=== PATIENT | female | born 1970 | race Caucasian/White ===

== ENCOUNTER → 2016-08-10 | Outpatient (CLI) | payer OTHER ==
[~2016-08-10] MED LIST: MULTTAB58 PO; PRT/20 PO
--- NOTE | 2016-08-16 17:00 | MAMMOGRAPHY REPORT ---
BILATERAL DIGITAL SCREENING MAMMOGRAM TOMOSYNTHESIS WITH CAD: 08/10/2016 CLINICAL HISTORY: Routine screening. Patient has no complaints. TECHNIQUE: Breast tomosynthesis in addition to standard 2D mammography was performed. Current study was also evaluated with a Computer Aided Detection (CAD) system. COMPARISON: Prior outside mammograms dated 05/10/2013, 06/10/2010, 03/18/2009 from [facility]. BREAST COMPOSITION: The tissue of both breasts is heterogeneously dense, which may obscure small ma sses. FINDINGS: There is a newly visualized lobulated circumscribed 11 mm mass seen within the right cent ral breast, for which ultrasound is recommended for further evaluation. This may represent a cyst. The remainder of both breasts are stable compared to prior exams, without suspicious masses, calcifi cations, or areas of architectural distortion noted. Asymmetries in bilateral superior breasts are stable compared to prior exams. IMPRESSION: INCOMPLETE: NEED PRIOR STUDIES FOR COMPARISON Right central breast mass, for which additional imaging evaluation with ultrasound is recommended. The patient will be called to schedule an appointment. Note that the impression should state INCOMPLETE-NEED ADDITIONAL IMAGING EVALUATION. Approximately 10% of breast cancers are not detected with mammography. A negative mammographic repor t should not delay biopsy if a clinically suggestive mass is present. Vanessa Church M.D. ah/:08/17/2016 16:06:40 Test Engineering Intern: Edgar HARVEY(Gilbert)(M), [facility] letter sent: Addl Imaging 0 BI-RADS Code: 0 Need prior studies for comparison
== END | disposition home or self-care (01) ==
LOC: C.MAMM 12:21
PROVIDERS: ATTEND Family Medicine
DX: Z12.31 Encounter for screening mammogram for malignant neoplasm of breast (principal); N63 Unspecified lump in breast

== ENCOUNTER → 2016-08-28 | Outpatient (CLI) | payer OTHER ==
--- NOTE | 2016-08-28 15:00 | MAMMOGRAPHY REPORT ---
ULTRASOUND OF RIGHT BREAST: 08/28/2016 CLINICAL HISTORY: 46-year-old woman called back from screening mammography for a lobulated 11 mm mas s in the central right breast. Family history of breast cancer = mother. COMPARISON: Mammograms dated 08/10/2016, 05/10/2013, 06/10/2010, 03/18/2009. FINDINGS: Real-time high-resolution sonographic evaluation was performed in the 12:00, retroareolar and 6:00 axes of the right breast. In the 12:00 axis periareolar region, there is an oval parallel circumscribed anechoic cyst with posterior acoustic enhancement, measuring 8.4 x 4.4 x 10.7 mm. Th is correlates well with the lobulated 11 mm mammographic mass and is benign. Incidental note is mad e of other anechoic cysts in the 12:00 right breast, 1 cm from the nipple, measuring 6.1 x 2.3 x 10. 6 mm in conglomerate. No suspicious solid mass is identified. There is mild benign duct ectasia in the retroareolar right breast. IMPRESSION: ACR BI-RADS CATEGORY 2: BENIGN The 11 mm lobulated and circumscribed mass in the central right breast correlates with a benign anec hoic simple cyst on ultrasound. Incidental note is made of other cysts in the 12:00 right breast. These findings represent benign fibrocystic changes. Recommend routine mammography in one year. These results and recommendations were discussed with the patient at the time of the exam. Michelle Rock M.D. ay/:08/28/2016 11:53:34 Brand Ambassador Promotional Model: Dr. Michelle Rock, [facility] letter sent: Normal 1/2 BI-RADS Code: ACR BI-RADS Category 2: Benign
== END | disposition home or self-care (01) ==
LOC: C.MAMM 11:07
PROVIDERS: ATTEND Family Medicine
DX: N63 Unspecified lump in breast (principal)

== ENCOUNTER → 2017-04-03 | Outpatient (CLI) | payer OTHER | END | disposition home or self-care (01) | LOC: C.LABSPEC 16:38 | PROVIDERS: ATTEND Physician Assistant | DX: N89.8 Other specified noninflammatory disorders of vagina (principal) ==

== ENCOUNTER → 2017-04-05 | Outpatient (CLI) | payer OTHER ==
[2017-04-05 18:10] LABS: URINE APPEARANCE CLEAR (CLEAR); URINE BILIRUBIN NEG (NEG); URINE COLOR YELLOW; URINE NITRITE NEG (NEG); URINE PH 6.5 (4.5-7.5); URINE SPECIFIC GRAVITY 1.009 (1.000-1.030); UROBILINOGEN NEG (NEG)
[2017-04-05 18:11] LABS: MANUAL MICROSCOPIC REQUIRED? NO; REVIEW REQ? YES
[2017-04-05 18:36] LABS: URINE EPITHELIAL CELL AUTO >30 /lpf (0-5)
== END | disposition home or self-care (01) ==
LOC: C.LABSPEC 17:32
PROVIDERS: ATTEND Obstetrics & Gynecology
DX: R31.0 Gross hematuria (principal)

== ENCOUNTER → 2017-07-25 | Outpatient (CLI) | payer OTHER | END | disposition home or self-care (01) | LOC: C.PAPS 09:27 | PROVIDERS: ATTEND Obstetrics & Gynecology | DX: Z01.419 Encounter for gynecological examination (general) (routine) without abnormal findings (principal) ==

== ENCOUNTER → 2017-08-24 | Outpatient (CLI) | payer OTHER ==
--- NOTE | 2017-08-24 12:23 | DIAGNOSTIC IMAGING REPORT ---
ABDOMINAL ULTRASOUND COMPLETE HISTORY: Generalized abdominal pain.. COMPARISON: Abdominal ultrasound 08/20/2013. FINDINGS: Pancreas: The pancreas demonstrates a normal echotexture. Liver: There are few scattered small hyperechoic foci within the liver with the largest measuring 1 cm. These are similar to the prior studies and favor small hemangiomas. Gallbladder: No gallbladder wall thickening. No gallstones. CBD: 5 mm. Kidneys: No hydronephrosis. Normal right kidney measuring 12.0 cm. Atrophic and scarred left kidney measures 7.5 cm. This remains unchanged. Spleen: Normal in size. Aorta: Normal in caliber. IVC: Patent. IMPRESSION: 1. No significant change compared to the prior studies. 2. A few small hepatic hemangiomas are again noted. 3. Normal gallbladder. No gallstones. 4. Atrophic/scarred left kidney is again noted. Electronically signed by: Jared Molina M.D. 08/24/2017 12:21 PM Dictated Date/Time: 08/24/2017 12:18 PM
== END | disposition home or self-care (01) ==
LOC: C.ULTR 10:49
PROVIDERS: ATTEND Family Medicine
DX: R10.11 Right upper quadrant pain (principal); D18.03 Hemangioma of intra-abdominal structures; N26.1 Atrophy of kidney (terminal)

== ENCOUNTER → 2017-09-04 | Outpatient (CLI) | payer OTHER ==
[~2017-09-04] MED LIST changes: +SINCALIDE INJ 1.5 MCG in SODIUM CHLORIDE 0.9% 100ML 100 ML IV SCH
--- NOTE | 2017-09-04 13:48 | DIAGNOSTIC IMAGING REPORT ---
HEPATOBILIARY EF IMAGING CLINICAL HISTORY: 47 years-old Female presenting with ABDOMINAL PAIN. TECHNIQUE: Dynamic imaging of the gallbladder was initiated 65 minutes after administration of 5 mCi of technetium 99m Choletec. Imaging was obtained every 5 minutes over a span of 40 minutes. 1.5 mcg of sincalide was injected 5 minutes prior to the start of imaging. The gallbladder ejection fraction was calculated. COMPARISON: Ultrasound from 08/24/2017. FINDINGS: The hepatobiliary scan shows normal filling of the gallbladder at the start of imaging. Expected activity within the bowel also noted. Gallbladder ejection fraction measured at 46% (normal greater than 50%, abnormal less than 35%). IMPRESSION: 1. Slightly diminished gallbladder ejection fraction. This is not convincing for chronic cholecystitis. Electronically signed by: Anthony Batista M.D. 09/04/2017 1:47 PM Dictated Date/Time: 09/04/2017 1:43 PM
== END | disposition home or self-care (01) ==
LOC: C.NUCL 10:21
PROVIDERS: ATTEND Family Medicine
DX: R10.84 Generalized abdominal pain (principal)

== ENCOUNTER → 2017-09-24 | Outpatient (CLI) | payer OTHER ==
[~2017-09-24] MED LIST changes: -SINCALIDE INJ 1.5 MCG in SODIUM CHLORIDE 0.9% 100ML 100 ML IV SCH
--- NOTE | 2017-09-24 10:38 | DIAGNOSTIC IMAGING REPORT ---
TWO VIEW CHEST CLINICAL HISTORY: Atypical chest pain. FINDINGS: PA and lateral chest radiographs are compared to study dated 02/28/2012. The cardiomediastinal silhouette is unremarkable. The lungs and pleural spaces are clear. There is no pneumothorax. The bony thorax appears intact. IMPRESSION: No active disease in the chest. Electronically signed by: Kimo Alfonso M.D. 09/24/2017 10:37 AM Dictated Date/Time: 09/24/2017 10:36 AM
--- NOTE | 2017-09-24 12:50 | DIAGNOSTIC IMAGING REPORT ---
SACRUM COCCYX MIN 2 VIEWS CLINICAL HISTORY: Fracture of coccyx, sequela. Tailbone pain. COMPARISON STUDY: CT of the abdomen and pelvis May 10, 2010. FINDINGS: Sacroiliac joints are intact. No acute fracture within the sacrum or the coccyx. Subtle cortical irregularity of the second coccygeal segment is similar to CT of May 10, 2010. This could reflect a healed fracture. IMPRESSION: 1. No acute fracture of the sacrum or coccyx. 2. Cortical irregularity of the second coccygeal segment which is similar to CT of May 10, 2010. This could reflect a healed fracture. Electronically signed by: Kevin Blackburn M.D. 09/24/2017 12:49 PM Dictated Date/Time: 09/24/2017 12:46 PM
== END | disposition home or self-care (01) ==
LOC: C.RAD 09:41
PROVIDERS: ATTEND Family Medicine
DX: R07.9 Chest pain, unspecified (principal)

== ENCOUNTER → 2017-10-03 | Outpatient (CLI) | payer OTHER ==
--- NOTE | 2017-10-03 15:56 | MAMMOGRAPHY REPORT ---
BILATERAL DIGITAL SCREENING MAMMOGRAM TOMOSYNTHESIS WITH CAD: 10/03/2017 CLINICAL HISTORY: Routine screening. Patient has no complaints. TECHNIQUE: Breast tomosynthesis in addition to standard 2D mammography was performed. Current study was also evaluated with a Computer Aided Detection (CAD) system. COMPARISON: Comparison is made to exams dated: 08/28/2016 ultrasound, 08/10/2016 mammogram - [facility], 05/10/2013 mammogram, 06/10/2010 mammogram, and 03/18/2009 mammogram - [facility]. BREAST COMPOSITION: The tissue of both breasts is heterogeneously dense, which may obscure small mas ses. FINDINGS: No suspicious masses, calcifications, or areas of architectural distortion are noted in ei ther breast. There has been no significant interval change compared to prior exams. IMPRESSION: ACR BI-RADS CATEGORY 1: NEGATIVE There is no mammographic evidence of malignancy. A 1 year screening mammogram is recommended. The pa tient will receive written notification of the results. Approximately 10% of breast cancers are not detected with mammography. A negative mammographic report should not delay biopsy if a clinically suggestive mass is present. Vanessa Church M.D. /:10/03/2017 15:03:09 Blanket Folder: Rhea HARVEY(Gilbert)(M), [facility] letter sent: Normal 1/2 BI-RADS Code: ACR BI-RADS Category 1: Negative
== END | disposition home or self-care (01) ==
LOC: C.MAMM 14:21
PROVIDERS: ATTEND Family Medicine
DX: Z12.31 Encounter for screening mammogram for malignant neoplasm of breast (principal)

== ENCOUNTER → 2017-11-05 | Day surgery (SDC) | payer OTHER ==
[2017-10-25 09:48] VITALS: Ht 180.3 cm; Wt 75.0 kg
[~2017-11-05] VITALS: Ht 180.3 cm; Wt 75.0 kg
[~2017-11-05] MED LIST changes: +ATROPINE SULFATE 0.1 MG/ML 5ML SYR IV PRN; +EpHEDrine SULFATE INJ 50 MG/ML AMP IV PRN; +LIDOCAINE HCL 2% 2 ML VIAL (20MG/ML) ONE; +MIDAZOLAM HCL 1 MG/ML 2ML VIAL ONE; -MULTTAB58 PO; +ONDANSETRON INJ 2 MG/ML 2 ML VIAL ONE; +PROPOFOL IV EMULSION 10 MG/ML 20 ML VIAL IV ONE; -PRT/20 PO
--- NOTE | 2017-11-05 10:14 | Endo History and Physical ---
History & Physical Date of Service: Nov 05, 2017. Chief Complaint: RUQ Abdominal pain Referring Physician: Khushboo Leal History of Present Illness 47 yo CF who presents for EGD secondary to RUQ abdominal pain. Past Surgical History Hx Cardiac Surgery: No Hx Internal Defibrillator: No Hx Pacemaker: No Hx Abdominal Surgery: Yes (LAPAROSCOPIES) Hx of Implantable Prosthesis: No Hx Post-Op Nausea and Vomiting: No Hx Cancer Surgery: No Hx Thoracic Surgery: No Hx Orthopedic: No Hx Urinary Tract Surgery: No Family History Polyp Social History Smoking Status: Never Smoker Hx Substance Use: No Hx Alcohol Use: No Allergies Coded Allergies: No Known Allergies (Unverified , 10/25/17) Current Medications Reported Home Medications Medications Dose Route/Sig Max Daily Dose Days Date Category No Active Prescriptions or Reported Medications Rx Vital Signs Weight (Kilograms): 75 Height (Feet): 5 Height (Inches): 11 Physical Exam General Appearance: WD/WN, no apparent distress Respiratory/Chest: Auscultation: breath sounds normal Cardiovascular: Heart Auscultation: RRR Abdomen: Bowel Sounds: normal Inspection & Palpation: soft, non-distended, no tenderness, guarding & rebound Assessment and Plan Assessment: 47 yo CF who presents for EGD secondary to RUQ abdominal pain. Plan: Proceed with colonoscopy.
--- NOTE | 2017-11-05 11:42 | Anesthesiology Progress Note ---
Anesthesia Post Op Note Date & Time Nov 05, 2017 at 11:42 Vital Signs Vital Signs Past 12 Hours Date Time Temp Pulse Resp B/P (MAP) Pulse Ox O2 Delivery O2 Flow Rate FiO2 11/05/17 10:14 36.7 83 20 143/75 (97) 99 Room Air Notes Mental Status: alert / awake / arousable, participated in evaluation Pt Amnestic to Procedure: Yes Nausea / Vomiting: adequately controlled Pain: adequately controlled Airway Patency, RR, SpO2: stable & adequate BP & HR: stable & adequate Hydration State: stable & adequate Anesthetic Complications: no major complications apparent
--- NOTE | 2017-11-05 11:43 | Discharge Instructions ---
Endoscopy Patient Instructions Date / Procedure(s) Performed Nov 05, 2017. EGD Allergy Information Coded Allergies: No Known Allergies (Unverified , 10/25/17) Discharge Date / Findings Nov 05, 2017. Duodenal biopsies Gastritis s/p biopsies Reflux esophagitis s/p biopsies Medication Instructions 1) Start Protonix 40mg by mouth each morning 1/2 hour prior to breakfast. 2) OK to resume all medications today as prescribed Reported Home Medications Medications Dose Route/Sig Max Daily Dose Days Date Category No Active Prescriptions or Reported Medications Rx Provider Instructions Activity Restrictions - No exercising or heavy lifting for 24 hours. - Do not drink alcohol the day of the procedure. - Do not drive a car or operate machinery until the day after the procedure. - Do not make any important decisions or sign important papers in 24 hours after the procedure. Following Day: - Return to full activity which may include returning to work/school. Diet Start your diet with liquids and light foods (jello, soup, juice, toast). Then eat your usual diet if not nauseated. Treatment For Common After Affects For mild abdominal pain, bloating, or excessive gas: - Rest - Eat lightly - Lie on right side Follow-Up Information Follow-up with Dr Khushboo Leal as scheduled Anesthesia Information What You Should Know You have had a procedure that required some medicine to reduce anxiety and discomfort. This treatment is called moderate sedation. After receiving the treatment, you may be sleepy, but you will be able to breathe on your own. The effects of the treatment may last for several hours. Follow these instructions along with Activity/Diet recommendations noted above: * Do NOT do anything where dizziness or clumsiness would be dangerous. * Rest quietly at home today, then you can be up and about tomorrow. * Have a responsible person stay with you the rest of today. * You may have had an I.V. today. If so, you may take the dressing off later today. Recommendations Call your doctor if: * Trouble breathing * Continuous vomiting for more than 24 hours * Temperature above 101 degrees * Severe abdominal pain or bloating * Pain not relieved by pain medicine ordered * There is increased drainage or redness from any incision * A large amount of rectal bleeding greater than 2-3 tablespoons. (If you had a polyp/s removed or have hemorrhoids, a small amount of blood - from the rectum is to be expected.) * You have any unanswered questions or concerns. IN THE EVENT OF A SERIOUS EMERGENCY, GO TO THE NEAREST EMERGENCY ROOM Your discharge instructions were prepared by provider Ian Mcdonough. Patient Instructions Signature Page Ricarda Hines Patient (or Guardian) Signature/Date: I have read and understand the instructions given to me by my caregivers. Caregiver/RN/Doctor Signature/Date: The above-named patient and/or guardian has received patient instructions on this date. + Original Patient Signature Page (only) stays with chart. Please make copy for patient.
--- NOTE | 2017-11-05 11:52 | GI REPORT ---
Procedure Date: 11/05/2017 11:16 AM Procedure: Upper GI endoscopy Indications: Abdominal pain in the right upper quadrant Medicines: Monitored Anesthesia Care Complications: No immediate complications. Estimated Blood Loss: Estimated blood loss: none. Procedure: Pre-Anesthesia Assessment: - Prior to the procedure, a History and Physical was performed, and patient medications and allergies were reviewed. The patient's tolerance of previous anesthesia was also reviewed. The risks and benefits of the procedure and the sedation options and risks were discussed with the patient. All questions were answered, and informed consent was obtained. Prior Anticoagulants: The patient has taken no previous anticoagulant or antiplatelet agents. ASA Grade Assessment: II - A patient with mild systemic disease. After reviewing the risks and benefits, the patient was deemed in satisfactory condition to undergo the procedure. After obtaining informed consent, the endoscope was passed under direct vision. Throughout the procedure, the patient's blood pressure, pulse, and oxygen saturations were monitored continuously. The scope was introduced through the mouth, and advanced to the second part of duodenum. The upper GI endoscopy was accomplished without difficulty. The patient tolerated the procedure well. Findings: LA Grade A (one or more mucosal breaks less than 5 mm, not extending between tops of 2 mucosal folds) esophagitis with no bleeding was found. Biopsies were taken with a cold forceps for histology. Localized mild inflammation was found in the gastric antrum. Biopsies were taken with a cold forceps for histology. The examined duodenum was normal. Biopsies for histology were taken with a cold forceps for evaluation of celiac disease. Impression: - LA Grade A reflux esophagitis. Biopsied. - Gastritis. Biopsied. - Normal examined duodenum. Biopsied. Recommendation: - Resume previous diet. - Use Protonix (pantoprazole) 40 mg PO daily. - Await pathology results. - Return to GI office as previously scheduled. Ian Mcdonough DO 11/05/2017 11:52:31 AM This report has been signed electronically. Note Initiated On: 11/05/2017 11:16 AM I attest to the content of the Intraoperative Record and orders documented therein, exceptions below
[2017-11-05 12:14] VITALS: BP 115/72; PULSE 69; TEMP 36.7; O2SAT 98
== END | disposition home or self-care (01) ==
LOC: C.GI 09:53
PROVIDERS: ATTEND Internal Medicine
DX: R10.31 Right lower quadrant pain (principal); K21.0 Gastro-esophageal reflux disease with esophagitis; K29.50 Unspecified chronic gastritis without bleeding; Z86.718 Personal history of other venous thrombosis and embolism

== ENCOUNTER 2023-01-22 08:48 | Observation (INO) ==
[2023-01-22] MEDS ORDERED: SODIUM CHLORIDE 0.9% 1000ML 500 ML IV ONE (09:01)
--- NOTE | 2023-01-22 09:03 | Emergency Department Note ---
Impression & Plan Stroke ADMIT ED Provider Note HPI: The patient is a 52-year-old female who presents emergency department with a chief complaint of headache and left lower extremity weakness. Patient states she woke up at approximately 6 AM with a mild headache and noticed that her left lower extremity was weak when she was trying to get out of bed. Patient describes this as a "heaviness" in her left lower extremity. She states her headache is moderate in nature. She states at times she did get some transient visual changes and does have a history of migraine with similar aura. On arrival here to the ED the patient is hemodynamically stable, she is alert and oriented x3, on exam is noted to have some very mild drift of the left lower extremity with testing against gravity but otherwise has no focal deficits. ROS: - Per HPI Differential Diagnosis: Migraine complex, tension headache, acute ischemic stroke, subarachnoid hemorrhage, hemorrhagic stroke, amongst other potential pathologies. *Outpatient medications and allergy history reviewed. *Pertinent external medical records reviewed. PE: General: Alert HEENT: Normocephalic, trachea midline Eyes: Extraocular eye movement is intact, no scleral erythema Pulmonary: Clear to auscultation bilaterally, no wheezing Cardio: Regular rate and rhythm GI: Abdomen is soft to palpation : No suprapubic tenderness MSK: No evidence of trauma or malformation of the extremities, no edema Skin: No evidence of rash Neuro: Alert, symmetrical facial movements are appreciated, mild drift of the left lower extremity with testing against gravity, there is no drift of the upper extremities with testing against gravity, no ataxia on [id number] testing bilaterally Psychiatric: Cooperative night monitor: (As interpreted by myself): - An order was placed for continuous cardiac monitoring - Patient was noted to be in sinus rhythm with a rate of 70 EKG: (As interpreted by myself): Rate: 62 Rhythm: Normal sinus rhythm Intervals: Within normal limits ST changes: No ST elevation Time: 0900 Interventions provided in ED: -Aspirin, Plavix, IV fluid bolus NIH STROKE SCALE: 1A: Level of consciousness Alert; keenly responsive 0 1B: Ask month and age Both questions right 0 1C: 'Blink eyes' & 'squeeze hands' Performs both tasks 0 2: Horizontal extraocular movements Normal 0 3: Visual salgado No visual loss 0 4: Facial palsy Normal symmetry 0 5A: Left arm motor drift No drift for 10 seconds 0 5B: Right arm motor drift No drift for 10 seconds 0 6A: Left leg motor drift Slight drift of the left lower extremity with testing against gravity +1 6B: Right leg motor drift No drift for 5 seconds 0 7: Limb Ataxia No ataxia 0 8: Sensation Normal; no sensory loss 0 9: Language/aphasia Normal; no aphasia 0 10: Dysarthria Normal 0 11: Extinction/inattention No abnormality 0 TOTAL NIH SCORE =1 Medical Decision Making: Patient presented to the emergency department with headache and some left lower extremity weakness. Symptoms began this morning when she woke up and are mild in nature therefore not considered a candidate for aggressive therapy such as thrombolytics. Here to the ED the patient does exhibit some drift of the left lower extremity with testing against gravity that is also mild in nature, otherwise she does not have any focal deficits. IV was established labwork obtained, patient was placed on pvc monitor, CT imaging of the head without contrast as well as CT imaging urography of the head and neck were ordered. CT imaging does not show any evidence of any acute abnormality, no evidence of any large vessel occlusion or stroke. Lab work shows mild leukopenia at 3.8, otherwise no critical findings are noted on CBC or CMP. On my reassessment patient symptoms are improved and NIH score on repeat is 0. She states she does have a history of some similar symptoms with migraine headaches in the past although given her focal complaint of weakness I did feel that MRI imaging of the brain would be reasonable to rule out ischemic stroke. MRI imaging was obtained and does show evidence of possible acute stroke in the area of the right hua radiata. I discussed this with the on-call stroke neurology at [facility], Dr. Vazquez, who is in agreement that at this time the patient to be admitted here at [facility] for further management and secondary work-up. Patient was loaded with aspirin and Plavix as well as given IV fluids. Patient is in agreement to this plan. Case was discussed with the on-call midlevel provider for [facility] hospitalist service and the patient was placed for admission in stable condition. Consultants: -Hospitalist service, Dr. Martinez -Neurology, Dr. Vazquez Disposition discussion held by myself with: Patient Diagnosis: 1. Acute ischemic stroke 2. Left lower extremity weakness, acute 3. Headache, acute 4. Leukopenia, acute, mild Disposition: Admission Axel Diamond DO Emergency Medicine Past Med/Surg History Medical History Anxiety state, unspecified (04/16/13) Eczema Gastritis determined by endoscopy Hyperlipidemia Hypothyroid Leukopenia Vitamin D deficiency Surgical History H/O colonoscopy (05/2019) +TBA, repeat 5 yrs History of dilatation and curettage multiple History of esophagogastroduodenoscopy (EGD) (05/2019) gastritis History of laparoscopy x4 History of left breast biopsy benign History of umbilical hernia repair with laparoscopy History of wisdom tooth extraction Family History (Updated 07/27/22 @ 09:26 by Angeline Ch DO) Grandfather (Maternal) Family history of reaction to anesthesia difficulty waking up Aunt Diabetes Grandmother (Paternal) Diabetes Leukemia Father Hypertension Dyslipidemia Mother , age 63 from [place] Breast cancer Myocardial infarction, Onset Age: 63 Grandmother (Maternal) Heart disease Leukemia Daughter Multiple sclerosis Social History Smoking Status: Never smoker Second Hand Exposure: No; Do You Dip or Chew Tobacco: No; Hx Alcohol Use: Yes Alcohol type: beer Alcohol Intake Frequency: Monthly or Less Hx Substance Use: No Preferred Language: Yi Communication Ability: Effective Visual Impairment: No Limitations Hearing Ability: Normal Carbonation Equipment Operator Required: No Beliefs That Will Affect Care: None marital status: Current Living Situation: Family Current Living Situation Comment: Lives with and son current occupational status: employed 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 How many Children do You have: 2 Feels Safe at Home: Yes Childhood Exposure to Second-Hand Smoke: No Diet: regular Diet Comment: Regular caffeine: Yes during the past year weight has: remained stable Dental Care, Regularly: Yes Physical Activity Frequency: 5-6 Times per Week Seatbelt Use: always Sunscreen Use: Yes Assistive Devices: Contacts and Glasses Allergies Allergies Allergy/AdvReac Type Severity Reaction Status Date / Time No Known Allergies Allergy Verified 01/22/23 13:08 Home Meds Home Medications Medication Instructions Recorded Confirmed multivitamin 1 tab PO QAM 11/15/18 01/22/23 Previous Rx's Medication Instructions Recorded Cock-Up Wrist Splint #1 ea 07/26/21 levothyroxine 50 mcg tablet 50 mcg PO DAILY #90 tabs 12/04/22 Results & Data (ED) Vital Signs Vital Signs - 24 hr 01/22/23 09:10 01/22/23 09:25 01/22/23 09:17 Temperature 36.4 C L Temperature Source Oral Pulse Rate 66 62 Pulse Rate [Apical] Pulse Rhythm Regular Pulse Strength Normal Respiratory Rate 16 Respiratory Effort / Characteristics Non-Labored Spontaneous Respiratory Depth Normal Blood Pressure 151/72 H Blood Pressure [Left Arm] Blood Pressure Mean 98 Blood Pressure Mean [Left Arm] Pulse Oximetry 98 98 Oxygen Delivery Method Room Air Room Air Sepsis Recent Fever Within 48 Hours No Sepsis New/Unexplained Change in Mental Status No Sepsis Action Taken by Nursing No Action Required 01/22/23 13:01 01/22/23 13:37 Temperature Temperature Source Pulse Rate 72 Pulse Rate [Apical] 68 Pulse Rhythm Pulse Strength Respiratory Rate 16 Respiratory Effort / Characteristics Respiratory Depth Blood Pressure Blood Pressure [Left Arm] 148/73 H Blood Pressure Mean Blood Pressure Mean [Left Arm] 98 Pulse Oximetry 99 Oxygen Delivery Method Sepsis Recent Fever Within 48 Hours Sepsis New/Unexplained Change in Mental Status Sepsis Action Taken by Nursing Laboratory Data 01/22/23 09:01 01/22/23 09:01 Lab Results 01/22/23 01/22/23 01/22/23 Range/Units 09:01 09:01 09:01 WBC 3.88 L (4.8-10.8) K/ul RBC 4.70 (4.20-5.40) M/uL Hgb 14.3 (12.0-16.0) g/dl Hct 42.0 (37.0-47.0) % MCV 89.4 (80.0-100.0) fL MCH 30.4 (25.0-34.0) pg MCHC 34.0 (32.0-36.0) g/dL RDW Std Deviation 43.9 (36.4-46.3) fL RDW Coeff of Merly 13.4 (11.5-14.5) % Plt Count 279 (130-400) K/uL MPV 9.3 L (9.4-12.4) fL Immature Gran % (Auto) 0.3 % Neut % (Auto) 60.6 % Lymph % (Auto) 30.9 % [place] % (Auto) 7.7 % Eos % (Auto) 0.0 % Baso % (Auto) 0.5 % Neut # (Auto) 2.35 (1.40-6.50) K/uL Lymph # (Auto) 1.20 (1.2-3.4) K/uL [place] # (Auto) 0.30 (0.11-0.59) K/uL Eos # (Auto) 0.00 (0-0.50) K/uL Baso # (Auto) 0.02 (0-0.2) K/uL Immature Gran # (Auto) 0.01 (0.01-0.20) K/uL PT 11.0 (9.0-12.0) Seconds INR 1.0 (0.9-1.1) APTT 26.8 (21.0-31.0) Seconds PTT Ratio 1.0 Sodium 138 (136-145) mmol/L Potassium 3.9 (3.5-5.1) mmol/L Chloride 104 (98-107) mmol/L Carbon Dioxide 29 (21-32) mmol/L Anion Gap 5 (3-11) BUN 12 (6-23) mg/dl Creatinine 0.90 (0.6-1.2) mg/dl Est Cr Clr Drug Dosing 79.9 ml/min Est GFR ( Amer) 84.0 ml/min Est GFR (Non-Af Amer) 72.5 ml/min BUN/Creatinine Ratio 13.3 (10-20) Glucose 109 H (70-99(Fasting)) mg/dl Calcium 9.9 (8.6-10.3) mg/dl Magnesium 1.9 (1.7-2.4) mg/dl Total Bilirubin 0.5 (0.2-1.0) mg/dl AST 18 (13-39) U/L ALT 12 (7-52) U/L Alkaline Phosphatase 69 (34-104) U/L Troponin I High Sens 4.0 (0-14) pg/ml Total Protein 7.7 (6.0-8.3) gm/dl Albumin 4.5 (3.4-5.0) gm/dl Globulin 3.2 (2.5-4.0) gm/dl Albumin/Globulin Ratio 1.4 (0.9-2) SARS-CoV-2, RNA, NAAT (NEGATIVE) 06/19/23 Range/Units 13:01 WBC (4.8-10.8) K/ul RBC (4.20-5.40) M/uL Hgb (12.0-16.0) g/dl Hct (37.0-47.0) % MCV (80.0-100.0) fL MCH (25.0-34.0) pg MCHC (32.0-36.0) g/dL RDW Std Deviation (36.4-46.3) fL RDW Coeff of Merly (11.5-14.5) % Plt Count (130-400) K/uL MPV (9.4-12.4) fL Immature Gran % (Auto) % Neut % (Auto) % Lymph % (Auto) % [place] % (Auto) % Eos % (Auto) % Baso % (Auto) % Neut # (Auto) (1.40-6.50) K/uL Lymph # (Auto) (1.2-3.4) K/uL [place] # (Auto) (0.11-0.59) K/uL Eos # (Auto) (0-0.50) K/uL Baso # (Auto) (0-0.2) K/uL Immature Gran # (Auto) (0.01-0.20) K/uL PT (9.0-12.0) Seconds INR (0.9-1.1) APTT (21.0-31.0) Seconds PTT Ratio Sodium (136-145) mmol/L Potassium (3.5-5.1) mmol/L Chloride (98-107) mmol/L Carbon Dioxide (21-32) mmol/L Anion Gap (3-11) BUN (6-23) mg/dl Creatinine (0.6-1.2) mg/dl Est Cr Clr Drug Dosing ml/min Est GFR ( Amer) ml/min Est GFR (Non-Af Amer) ml/min BUN/Creatinine Ratio (10-20) Glucose (70-99(Fasting)) mg/dl Calcium (8.6-10.3) mg/dl Magnesium (1.7-2.4) mg/dl Total Bilirubin (0.2-1.0) mg/dl AST (13-39) U/L ALT (7-52) U/L Alkaline Phosphatase (34-104) U/L Troponin I High Sens (0-14) pg/ml Total Protein (6.0-8.3) gm/dl Albumin (3.4-5.0) gm/dl Globulin (2.5-4.0) gm/dl Albumin/Globulin Ratio (0.9-2) SARS-CoV-2, RNA, NAAT NEGATIVE (NEGATIVE) Administered Medications Discontinued Medications Aspirin (Aspirin Chew 324 Mg) 324 mg PO NOW STA Stop: 01/22/23 12:53 Last Admin: 01/22/23 12:57 Dose: 324 mg Documented By: SERGE Clopidogrel Bisulfate (Clopidogrel Bisulfate 300 Mg Tab) 300 mg PO NOW STA Stop: 01/22/23 13:10 Last Admin: 01/22/23 13:19 Dose: 300 mg Documented By: SERGE Sodium Chloride (Nss 1000ml) 500 mls @ 999 mls/hr IV .Q31M ONE Stop: 01/22/23 09:31 Last Infusion: 01/22/23 10:18 Dose: 0 mls/hr Documented By: Admin: 01/22/23 09:30 Dose: 999 mls/hr Documented By: MIRACLE Ioversol (Optiray 320 125ml) 119 ml IV ONCE ONE Stop: 01/22/23 10:33 Last Admin: 01/22/23 10:32 Dose: 119 ml Documented By: KOFI Imaging Data Radiologist's Impression: Head CT 01/22/23 09:01 CT OF THE HEAD WITHOUT CONTRAST CLINICAL HISTORY: neuro deficit, acute stroke suspected. Dizziness. Left-sided weakness. COMPARISON STUDY: No previous studies for comparison. TECHNIQUE: Helical axial images of the head were obtained without IV contrast. Automated exposure control was utilized for the study. A dose lowering technique was utilized adhering to the principles of ALARA. FINDINGS: No acute intracranial hemorrhage, midline shift or mass effect is present. The ventricular system is unremarkable. The basal cisterns are patent. No extra-axial collections are present. There are no findings to suggest acute dural sinus thrombosis or acute territorial infarct. There is mild ethmoid sinus mucosal thickening. IMPRESSION: No acute intracranial findings. ACT 112: Negative or not required by law. Electronically signed by: Kevin Blackburn M.D. 01/22/2023 10:41 AM Head CTA 01/22/23 09:01 CT ANGIOGRAM OF THE BRAIN CLINICAL HISTORY: Neurologic deficit. Stroke like symptoms. Dizziness. COMPARISON STUDY: Unenhanced CT of the brain performed concurrently on 01/22/2023. TECHNIQUE: Following the IV administration of 119 cc of Optiray 320, CT angiogram of the brain was performed from the skull base to the vertex. Images are reviewed in the axial, sagittal, and coronal planes. 3-D MIPS images are created and assessed. IV contrast was administered without complication. A dose lowering technique was utilized adhering to the principles of ALARA. FINDINGS: Brain parenchyma: The brain parenchyma is normal in appearance. There is no evidence of hemorrhage, mass effect, or acute territorial ischemia noting angiographic phase technique. There is no evidence of enhancing mass lesion on the angiogram phase images. No extra-axial fluid collection is seen. Wisdom-white matter differentiation is preserved. Ventricles, sulci, and cisterns: Normal in configuration. CT angiogram of the brain: The internal carotid arteries are widely patent, as are the anterior and middle cerebral arteries. The vertebrobasilar system and posterior cerebral arteries are widely patent. The left vertebral artery is dominant. There is no aneurysm, high-grade stenosis, or focal vessel cutoff identified throughout the intracranial circulation. Dural sinuses: Clear as visualized. Orbits: The bony orbits are intact. The orbital contents are normal as visualized. Sinuses and mastoids: The visualized paranasal sinuses are clear. The mastoid air cells are well pneumatized. Calvarium: Unremarkable. IMPRESSION: 1. There is no evidence of hemorrhage, mass effect, or acute territorial ischemia noting angiographic phase technique. 2. Unremarkable CT angiogram of the brain. ACT 112: Negative or not required by law. Electronically signed by: Kimo Alfonso M.D. 01/22/2023 10:45 AM Neck CTA 01/22/23 09:01 CT angio neck with con CLINICAL HISTORY: 52 years-old Female with neuro deficit, acute stroke suspected. Acute stroke like symptoms COMPARISON STUDY: CTA head of same day TECHNIQUE: Following the IV administration of 119 mL of Optiray, CT angiogram of the neck was performed from the aortic arch to the skull base. Images are reviewed in the axial, sagittal, and coronal planes. 3-D MIPS images are created and assessed. IV contrast was administered without complication. All measurements were calculated based on NASCET criteria. A dose lowering technique was utilized adhering to the principles of ALARA. CT DOSE: 997.82 mGy.cm FINDINGS: No significant atherosclerosis. No aneurysm, dissection, high-grade stenosis or arterial occlusion. Dominant left vertebral artery. Lung apices are clear. No pneumothorax. Unremarkable soft tissues. No acute fracture. IMPRESSION:Unremarkable CTA of the neck. ACT 112: Negative or not required by law. The above report was generated using voice recognition software. It may contain grammatical, syntax or spelling errors. Electronically signed by: Kamron Phillips M.D. 01/22/2023 11:01 AM Brain MRI 01/22/23 11:01 MRI OF THE BRAIN WITHOUT IV CONTRAST CLINICAL HISTORY: Left lower extremity weakness. Dizziness. COMPARISON STUDY: CT of the brain dated 01/22/2023. TECHNIQUE: MRI of the brain was performed utilizing various T1 and T2-weighted sequences in the axial, sagittal, and coronal planes. IV contrast was not administered for this examination. FINDINGS: Brain parenchyma: There is a 1 cm focus of restricted diffusion suggested in the right hua radiata seen on axial image #13. There is no clear corresponding drop in signal on the ADC maps. A small acute to subacute lacunar infarct is not excluded. No additional foci of restricted diffusion are identified. There is no hemorrhage or mass effect. There are tiny chronic lacunar infarcts within both cerebellar hemispheres. Wisdom-white matter differentiation is preserved. No extra-axial fluid collection is seen. The cerebellar tonsils are normal in configuration. Ventricles, sulci, and cisterns: Normal in configuration. Pituitary and sella: Unremarkable. Intracranial vasculature: Normal flow voids are maintained at the skull base. Orbits: The bony orbits are grossly intact. Orbital contents are normal in appearance. Sinuses and mastoids: There is mild mucosal thickening within the right ethmoid sinuses. The remaining paranasal sinuses and anastomosis are clear. Calvarium: Unremarkable. Cervical cord: Partially visualized cervical spinal cord is normal in morphology and signal intensity. IMPRESSION: 1. Question a tiny acute to subacute lacunar infarct in the right hua radiata. See above. 2. No additional findings are suspicious for acute ischemia. 3. There is no hemorrhage or mass effect. ACT 112: Negative or not required by law. Electronically signed by: Kimo Alfonso M.D. 01/22/2023 12:46 PM Discharge Plan Visit Data Chief Complaint: Neuro Symptoms/Deficit Stated Complaint: HEADACHE, BLURRED VISION, L LEG & ARM HEAVINESS ED Provider: Axel Diamond Discharge Problem: Stroke Forms Stand Alone Forms: My [facility] [place] [employer] Prescriptions Prescriptions: No Action levothyroxine 50 mcg tablet 50 mcg PO DAILY Qty: 90 1RF (DME) Cock-Up Wrist Splint Misc See Rx Instructions .Route Qty: 1 0RF Rx Instructions: As directed multivitamin Tablet 1 tab PO QAM Referrals Referrals: Angeline Ch DO [Primary Care Provider] - Stroke Qualifiers: CVA mechanism: unspecified Qualified Code(s): I63.9 - Cerebral infarction, unspecified
[2023-01-22 09:48] LABS: Basophils # (auto) 0.02 K/uL (0-0.2); Basophils % (auto) 0.5 %; Hemoglobin 14.3 g/dl (12.0-16.0); Immature Granulocytes # (auto) 0.01 K/uL (0.01-0.20); Immature Granulocytes % (auto) 0.3 %; Lymphocytes % (auto) 30.9 %; Mean Corpuscular Hemoglobin 30.4 pg (25.0-34.0); Mean Corpuscular Volume 89.4 fL (80.0-100.0); Mean Platelet Volume 9.3 fL (9.4-12.4); Monocytes % (auto) 7.7 %; Neutrophils # (auto) 2.35 K/uL (1.40-6.50); Neutrophils % (auto) 60.6 %; Platelet Count 279 K/uL (130-400); RDW Coefficient of Variation 13.4 % (11.5-14.5); RDW Standard Deviation 43.9 fL (36.4-46.3); White Blood Count 3.88 K/ul (4.8-10.8)
[2023-01-22 10:04] LABS: Albumin Globulin Ratio 1.4 (0.9-2); Albumin Level 4.5 gm/dl (3.4-5.0); BUN Creatinine Ratio 13.3 (10-20); Bilirubin,Total 0.5 mg/dl (0.2-1.0); Calcium 9.9 mg/dl (8.6-10.3); Creatinine Clr Calc Pharmacy 79.9 ml/min; Est GFR (Non-African American) 72.5 ml/min; Globulin 3.2 gm/dl (2.5-4.0); Magnesium 1.9 mg/dl (1.7-2.4); Potassium 3.9 mmol/L (3.5-5.1); Total Protein 7.7 gm/dl (6.0-8.3)
[2023-01-22 10:20] LABS: Partial Thromboplastin Time 26.8 Seconds (21.0-31.0)
[2023-01-22] MEDS ORDERED: OPTIRAY 320 125ml IV ONE (10:32)
--- NOTE | 2023-01-22 10:42 | CT Scan Report ---
CT OF THE HEAD WITHOUT CONTRAST CLINICAL HISTORY: neuro deficit, acute stroke suspected. Dizziness. Left-sided weakness. COMPARISON STUDY: No previous studies for comparison. TECHNIQUE: Helical axial images of the head were obtained without IV contrast. Automated exposure con trol was utilized for the study. A dose lowering technique was utilized adhering to the principles o f ALARA. FINDINGS: No acute intracranial hemorrhage, midline shift or mass effect is present. The ventricular system is unremarkable. The basal cisterns are patent. No extra-axial collections are present. There are no findings to suggest acute dural sinus thrombosis or acute territorial infarct. There is mild e thmoid sinus mucosal thickening. IMPRESSION: No acute intracranial findings. ACT 112: Negative or not required by law. Electronically signed by: Kevin Blackburn M.D. 01/22/2023 10:41 AM
--- NOTE | 2023-01-22 10:47 | CT Scan Report ---
CT ANGIOGRAM OF THE BRAIN CLINICAL HISTORY: Neurologic deficit. Stroke like symptoms. Dizziness. COMPARISON STUDY: Unenhanced CT of the brain performed concurrently on 01/22/2023. TECHNIQUE: Following the IV administration of 119 cc of Optiray 320, CT angiogram of the brain was pe rformed from the skull base to the vertex. Images are reviewed in the axial, sagittal, and coronal pl anes. 3-D MIPS images are created and assessed. IV contrast was administered without complication. A dose lowering technique was utilized adhering to the principles of ALARA. FINDINGS: Brain parenchyma: The brain parenchyma is normal in appearance. There is no evidence of hemorrhage, m ass effect, or acute territorial ischemia noting angiographic phase technique. There is no evidence o f enhancing mass lesion on the angiogram phase images. No extra-axial fluid collection is seen. Wisdom- white matter differentiation is preserved. Ventricles, sulci, and cisterns: Normal in configuration. CT angiogram of the brain: The internal carotid arteries are widely patent, as are the anterior and m iddle cerebral arteries. The vertebrobasilar system and posterior cerebral arteries are widely patent . The left vertebral artery is dominant. There is no aneurysm, high-grade stenosis, or focal vessel c utoff identified throughout the intracranial circulation. Dural sinuses: Clear as visualized. Orbits: The bony orbits are intact. The orbital contents are normal as visualized. Sinuses and mastoids: The visualized paranasal sinuses are clear. The mastoid air cells are well pneu matized. Calvarium: Unremarkable. IMPRESSION: 1. There is no evidence of hemorrhage, mass effect, or acute territorial ischemia noting angiographic phase technique. 2. Unremarkable CT angiogram of the brain. ACT 112: Negative or not required by law. Electronically signed by: Kimo Alfonso M.D. 01/22/2023 10:45 AM
--- NOTE | 2023-01-22 11:02 | CT Scan Report ---
CT angio neck with con CLINICAL HISTORY: 52 years-old Female with neuro deficit, acute stroke suspected. Acute stroke lik e symptoms COMPARISON STUDY: CTA head of same day TECHNIQUE: Following the IV administration of 119 mL of Optiray, CT angiogram of the neck was perform ed from the aortic arch to the skull base. Images are reviewed in the axial, sagittal, and coronal pl anes. 3-D MIPS images are created and assessed. IV contrast was administered without complication. Al l measurements were calculated based on NASCET criteria. A dose lowering technique was utilized adhe ring to the principles of ALARA. CT DOSE: 997.82 mGy.cm FINDINGS: No significant atherosclerosis. No aneurysm, dissection, high-grade stenosis or arterial occlusion. D ominant left vertebral artery. Lung apices are clear. No pneumothorax. Unremarkable soft tissues. No acute fracture. IMPRESSION:Unremarkable CTA of the neck. ACT 112: Negative or not required by law. The above report was generated using voice recognition software. It may contain grammatical, syntax o r spelling errors. Electronically signed by: Kamron Phillips M.D. 01/22/2023 11:01 AM
--- NOTE | 2023-01-22 12:47 | Magnetic Resonance Report ---
MRI OF THE BRAIN WITHOUT IV CONTRAST CLINICAL HISTORY: Left lower extremity weakness. Dizziness. COMPARISON STUDY: CT of the brain dated 01/22/2023. TECHNIQUE: MRI of the brain was performed utilizing various T1 and T2-weighted sequences in the axial , sagittal, and coronal planes. IV contrast was not administered for this examination. FINDINGS: Brain parenchyma: There is a 1 cm focus of restricted diffusion suggested in the right hua radiata seen on axial image #13. There is no clear corresponding drop in signal on the ADC maps. A small acu te to subacute lacunar infarct is not excluded. No additional foci of restricted diffusion are identi fied. There is no hemorrhage or mass effect. There are tiny chronic lacunar infarcts within both cere bellar hemispheres. Wisdom-white matter differentiation is preserved. No extra-axial fluid collection i s seen. The cerebellar tonsils are normal in configuration. Ventricles, sulci, and cisterns: Normal in configuration. Pituitary and sella: Unremarkable. Intracranial vasculature: Normal flow voids are maintained at the skull base. Orbits: The bony orbits are grossly intact. Orbital contents are normal in appearance. Sinuses and mastoids: There is mild mucosal thickening within the right ethmoid sinuses. The remainin g paranasal sinuses and anastomosis are clear. Calvarium: Unremarkable. Cervical cord: Partially visualized cervical spinal cord is normal in morphology and signal intensity . IMPRESSION: 1. Question a tiny acute to subacute lacunar infarct in the right hua radiata. See above. 2. No additional findings are suspicious for acute ischemia. 3. There is no hemorrhage or mass effect. ACT 112: Negative or not required by law. Electronically signed by: Kimo Alfonso M.D. 01/22/2023 12:46 PM
[2023-01-22] MEDS ORDERED: ASPIRIN CHEW 324 MG PO STA (12:52)
[2023-01-22] MEDS ORDERED: CLOPIDOGREL BISULFATE 300 MG TAB PO STA (13:09)
--- NOTE | 2023-01-22 13:24 | History & Physical Report ---
Date of Service January 22, 2023 Assessment & Plan (1) Stroke: Plan: Presented with headache/L arm heaviness/L leg weakness. COVID negative. BP on arrival 151/72 CT head negative, CTA head/neck without acute abnormality MRI brain obtained which showed ?tiny acute to subacute lacunar infarct in the right hua radiata No TPN per discussion w/ 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 (consider holter at dc if no afib on monitor given symptoms of dizziness coming/going) -Check TSH given hypothyroidism, typically on 50mcg daily Given ASA/Plavix in ER, continue ASA 81mg/Plavix for tomorrow x21 days, then rec ASA 81mg daily NIHSS NSS x1L to maintain BPs (slightly dehydrated on exam, but not on labs) -- will need outpt f/u for meds likely to be initiated but will allow permissive HTN at present Complete ECHO Lipid panel in AM -- dosing pending repeat levels (prior elevated cholesterol to 250, not on treatment) A1c in AM -- family hx DM, however glu on admission 109 to note Dysphagia screening, then advance diet as tolerated (not having any issues w/ swallowing at present moment) PT/OT/Speech consult Neuro consult in AM Labs in AM (2) Leukopenia: Plan: noted, differential unimpressive all prior levels low in system -- does appear had lymph node biopsy in the past. was sent for flow analysis but unimpressive will check peripheral smear, monitor CBC w/ diff on repeat (3) Hyperlipidemia: Plan: hx of such, not on treatment Lipid panel in AM, plan to start statin therapy (4) Hypothyroid: Plan: Prior TSH wnl in 08.14 Instructed on proper use, repeat TSH pending w/ labs Continue Synthroid 50mcg in the meantime (5) GERD (gastroesophageal reflux disease): Plan: prior hx reflux, not reporting any issues at present used to be on protonix/pepcid, not at present (prior EGD/c-scope in 2018 w/ polyp removed w/ colonoscopy, EGD showed gastritis, small hiatal hernia) monitor for any issues History of Present Illness Chief Complaint: headache, LLE weakness Primary Care Provider: Angeline Ch, 52yo female with PMHx significant for migraine w/ aura, hypothyroidism, GERD, 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 NIHSS 1 for LLE drift against resistance in ER. Discussed w/ [facility] [facility] Neurologist Dr Vazquez by ER provider Dr Mayo, no TPN. Rec to load w/ ASA/Plavix and complete secondary work-up with ECHO/Lipid/A1c. Patient evaluated in room A11B, daughter and at bedside. Symptoms currently resolved at present reported, possibly slight LLE weakness w/ dorsiflexion on exam but otherwise negative. Currently without symptoms, sipping on water and having applesauce. She notes she did not have any chest pain/shortness of breath, but did have some dizziness reported. No palpitations/history of afib. On Synthroid, used to take before eating but has been taking w/ her AM coffee/breakfast. Prior too low level TSH and adjustments made but hasn't had recent check since last July. Discussed admission for completing stroke work-up, neuro consult w/ Dr Hyatt for AM (daughter follows for history of MS). No recent chills/fevers, illness, no chest pain, shortness of breath, abdominal pain. 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 No pronator drift or weakness of upper extremities bilaterally. Prior cholesterol level July 2022 250, LDL 164, HDL 68. Not on treatment -- she notes her levels were "good" per her report. No smoker, occasional etoh use. Does not take baby ASA at home. Just given ASA/Plavix prior to eval. Full code. Questions/concerns addressed at this time. ER Course: CT head, CTA head/neck, MRI brain noting questionable tiny acute to subacute lacunar infarct in right hua radiata. CBC with WBC 3.88, no shift. CMP unremarkable, glu 109. Mag 1.9. Trop 4.5. EKG w/ NSR but noting RBBB (no prior for comparison in system). Allergies Allergy/AdvReac Type Severity Reaction Status Date / Time No Known Allergies Allergy Verified 01/22/23 13:08 Home Medications Medication Instructions Recorded Confirmed Type multivitamin 1 tab PO QAM 11/15/18 01/22/23 History Cock-Up Wrist Splint #1 ea 07/26/21 07/27/22 Rx levothyroxine 50 mcg tablet 50 mcg PO DAILY #90 tabs 12/04/22 01/22/23 Rx Past Med/Surg History Medical History Anxiety state, unspecified (04/16/13) Eczema Gastritis determined by endoscopy Hyperlipidemia Hypothyroid Leukopenia Vitamin D deficiency Surgical History H/O colonoscopy (05/2019) +TBA, repeat 5 yrs History of dilatation and curettage multiple History of esophagogastroduodenoscopy (EGD) (05/2019) gastritis History of laparoscopy x4 History of left breast biopsy benign History of umbilical hernia repair with laparoscopy History of wisdom tooth extraction Family History Grandfather (Maternal) Family history of reaction to anesthesia difficulty waking up Aunt Diabetes Grandmother (Paternal) Diabetes Leukemia Father Hypertension Dyslipidemia Mother , age 63 from [place] Breast cancer Myocardial infarction, Onset Age: 63 Grandmother (Maternal) Heart disease Leukemia Daughter Multiple sclerosis Social History Smoking Status: Never smoker Second Hand Exposure: No; Do You Dip or Chew Tobacco: No; Hx Alcohol Use: Yes Alcohol type: beer Alcohol Intake Frequency: Monthly or Less Hx Substance Use: No Preferred Language: Persian Communication Ability: Effective Visual Impairment: No Limitations Hearing Ability: Normal Home Help Aide Required: No Beliefs That Will Affect Care: None marital status: Current Living Situation: Family Current Living Situation Comment: Lives with and son current occupational status: employed 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 How many Children do You have: 2 Feels Safe at Home: Yes Childhood Exposure to Second-Hand Smoke: No Diet: regular Diet Comment: Regular caffeine: Yes during the past year weight has: remained stable Dental Care, Regularly: Yes Physical Activity Frequency: 5-6 Times per Week Seatbelt Use: always Sunscreen Use: Yes Assistive Devices: Contacts and Glasses Review of Systems Review of Systems: All systems reviewed & are unremarkable except as noted in HPI & below Physical Exam Physical Exam: General: WD/WN, thin female sitting up in bed, family at bedside, NAD HEENT: head normocephalic, atraumatic, pupils equal/reactive, mm slightly dry (drinking water currently), trachea midline without deviation, no nystagmus Resp: CTAB, poor effort at times, no wheezing/crackles/rales, 99% on RA CV: RRR, no significant m/r/g, no pitting edema/calf tenderness, pulses palpable GI: +BS, soft/NT MSK/Neuro: CN intact grossly, no pronator drift/slurred speech or facial droop. ferrell-heel testing intact bilaterally, finger-finger testing without abnormality, follows commands Psych: AOx3, cooperative with exam, hopeful for dc tomorrow Results & Data Results & Data Vital Signs (Past 12 Hours) Vital Signs Temp Pulse Pulse Resp BP BP Pulse Ox 01/22/23 13:01 68 16 148/73 H 99 01/22/23 09:17 98 01/22/23 09:25 62 01/22/23 09:10 36.4 C L 66 16 151/72 H 98 O2 Del Method 01/22/23 13:01 01/22/23 09:17 Room Air 01/22/23 09:25 01/22/23 09:10 Room Air Laboratory Results 01/22/23 01/22/23 01/22/23 Range/Units 13:01 09:01 09:01 WBC (4.8-10.8) K/ul RBC (4.20-5.40) M/uL Hgb (12.0-16.0) g/dl Hct (37.0-47.0) % MCV (80.0-100.0) fL MCH (25.0-34.0) pg MCHC (32.0-36.0) g/dL RDW Std Deviation (36.4-46.3) fL RDW Coeff of Merly (11.5-14.5) % Plt Count (130-400) K/uL MPV (9.4-12.4) fL Immature Gran % (Auto) % Neut % (Auto) % Lymph % (Auto) % [place] % (Auto) % Eos % (Auto) % Baso % (Auto) % Neut # (Auto) (1.40-6.50) K/uL Lymph # (Auto) (1.2-3.4) K/uL [place] # (Auto) (0.11-0.59) K/uL Eos # (Auto) (0-0.50) K/uL Baso # (Auto) (0-0.2) K/uL Immature Gran # (Auto) (0.01-0.20) K/uL PT 11.0 (9.0-12.0) Seconds INR 1.0 (0.9-1.1) APTT 26.8 (21.0-31.0) Seconds PTT Ratio 1.0 Sodium 138 (136-145) mmol/L Potassium 3.9 (3.5-5.1) mmol/L Chloride 104 (98-107) mmol/L Carbon Dioxide 29 (21-32) mmol/L Anion Gap 5 (3-11) BUN 12 (6-23) mg/dl Creatinine 0.90 (0.6-1.2) mg/dl Est Cr Clr Drug Dosing 79.9 ml/min Est GFR ( Amer) 84.0 ml/min Est GFR (Non-Af Amer) 72.5 ml/min BUN/Creatinine Ratio 13.3 (10-20) Glucose 109 H (70-99(Fasting)) mg/dl Calcium 9.9 (8.6-10.3) mg/dl Magnesium 1.9 (1.7-2.4) mg/dl Total Bilirubin 0.5 (0.2-1.0) mg/dl AST 18 (13-39) U/L ALT 12 (7-52) U/L Alkaline Phosphatase 69 (34-104) U/L Troponin I High Sens 4.0 (0-14) pg/ml Total Protein 7.7 (6.0-8.3) gm/dl Albumin 4.5 (3.4-5.0) gm/dl Globulin 3.2 (2.5-4.0) gm/dl Albumin/Globulin Ratio 1.4 (0.9-2) SARS-CoV-2, RNA, NAAT NEGATIVE (NEGATIVE) 01/22/23 Range/Units 09:01 WBC 3.88 L (4.8-10.8) K/ul RBC 4.70 (4.20-5.40) M/uL Hgb 14.3 (12.0-16.0) g/dl Hct 42.0 (37.0-47.0) % MCV 89.4 (80.0-100.0) fL MCH 30.4 (25.0-34.0) pg MCHC 34.0 (32.0-36.0) g/dL RDW Std Deviation 43.9 (36.4-46.3) fL RDW Coeff of Merly 13.4 (11.5-14.5) % Plt Count 279 (130-400) K/uL MPV 9.3 L (9.4-12.4) fL Immature Gran % (Auto) 0.3 % Neut % (Auto) 60.6 % Lymph % (Auto) 30.9 % [place] % (Auto) 7.7 % Eos % (Auto) 0.0 % Baso % (Auto) 0.5 % Neut # (Auto) 2.35 (1.40-6.50) K/uL Lymph # (Auto) 1.20 (1.2-3.4) K/uL [place] # (Auto) 0.30 (0.11-0.59) K/uL Eos # (Auto) 0.00 (0-0.50) K/uL Baso # (Auto) 0.02 (0-0.2) K/uL Immature Gran # (Auto) 0.01 (0.01-0.20) K/uL PT (9.0-12.0) Seconds INR (0.9-1.1) APTT (21.0-31.0) Seconds PTT Ratio Sodium (136-145) mmol/L Potassium (3.5-5.1) mmol/L Chloride (98-107) mmol/L Carbon Dioxide (21-32) mmol/L Anion Gap (3-11) BUN (6-23) mg/dl Creatinine (0.6-1.2) mg/dl Est Cr Clr Drug Dosing ml/min Est GFR ( Amer) ml/min Est GFR (Non-Af Amer) ml/min BUN/Creatinine Ratio (10-20) Glucose (70-99(Fasting)) mg/dl Calcium (8.6-10.3) mg/dl Magnesium (1.7-2.4) mg/dl Total Bilirubin (0.2-1.0) mg/dl AST (13-39) U/L ALT (7-52) U/L Alkaline Phosphatase (34-104) U/L Troponin I High Sens (0-14) pg/ml Total Protein (6.0-8.3) gm/dl Albumin (3.4-5.0) gm/dl Globulin (2.5-4.0) gm/dl Albumin/Globulin Ratio (0.9-2) SARS-CoV-2, RNA, NAAT (NEGATIVE) Diagnostic Findings Head CT 01/22/23 09:01 CT OF THE HEAD WITHOUT CONTRAST CLINICAL HISTORY: neuro deficit, acute stroke suspected. Dizziness. Left-sided weakness. COMPARISON STUDY: No previous studies for comparison. TECHNIQUE: Helical axial images of the head were obtained without IV contrast. Automated exposure control was utilized for the study. A dose lowering technique was utilized adhering to the principles of ALARA. FINDINGS: No acute intracranial hemorrhage, midline shift or mass effect is present. The ventricular system is unremarkable. The basal cisterns are patent. No extra-axial collections are present. There are no findings to suggest acute dural sinus thrombosis or acute territorial infarct. There is mild ethmoid sinus mucosal thickening. IMPRESSION: No acute intracranial findings. ACT 112: Negative or not required by law. Electronically signed by: Kevin Blackburn M.D. 01/22/2023 10:41 AM Head CTA 01/22/23 09:01 CT ANGIOGRAM OF THE BRAIN CLINICAL HISTORY: Neurologic deficit. Stroke like symptoms. Dizziness. COMPARISON STUDY: Unenhanced CT of the brain performed concurrently on 01/22/2023. TECHNIQUE: Following the IV administration of 119 cc of Optiray 320, CT angiogram of the brain was performed from the skull base to the vertex. Images are reviewed in the axial, sagittal, and coronal planes. 3-D MIPS images are created and assessed. IV contrast was administered without complication. A dose lowering technique was utilized adhering to the principles of ALARA. FINDINGS: Brain parenchyma: The brain parenchyma is normal in appearance. There is no evidence of hemorrhage, mass effect, or acute territorial ischemia noting angiographic phase technique. There is no evidence of enhancing mass lesion on the angiogram phase images. No extra-axial fluid collection is seen. Wisdom-white matter differentiation is preserved. Ventricles, sulci, and cisterns: Normal in configuration. CT angiogram of the brain: The internal carotid arteries are widely patent, as are the anterior and middle cerebral arteries. The vertebrobasilar system and posterior cerebral arteries are widely patent. The left vertebral artery is dominant. There is no aneurysm, high-grade stenosis, or focal vessel cutoff identified throughout the intracranial circulation. Dural sinuses: Clear as visualized. Orbits: The bony orbits are intact. The orbital contents are normal as visualized. Sinuses and mastoids: The visualized paranasal sinuses are clear. The mastoid air cells are well pneumatized. Calvarium: Unremarkable. IMPRESSION: 1. There is no evidence of hemorrhage, mass effect, or acute territorial ischemia noting angiographic phase technique. 2. Unremarkable CT angiogram of the brain. ACT 112: Negative or not required by law. Electronically signed by: Kimo Alfonso M.D. 01/22/2023 10:45 AM Neck CTA 01/22/23 09:01 CT angio neck with con CLINICAL HISTORY: 52 years-old Female with neuro deficit, acute stroke suspected. Acute stroke like symptoms COMPARISON STUDY: CTA head of same day TECHNIQUE: Following the IV administration of 119 mL of Optiray, CT angiogram of the neck was performed from the aortic arch to the skull base. Images are reviewed in the axial, sagittal, and coronal planes. 3-D MIPS images are created and assessed. IV contrast was administered without complication. All measurements were calculated based on NASCET criteria. A dose lowering technique was utilized adhering to the principles of ALARA. CT DOSE: 997.82 mGy.cm FINDINGS: No significant atherosclerosis. No aneurysm, dissection, high-grade stenosis or arterial occlusion. Dominant left vertebral artery. Lung apices are clear. No pneumothorax. Unremarkable soft tissues. No acute fracture. IMPRESSION:Unremarkable CTA of the neck. ACT 112: Negative or not required by law. The above report was generated using voice recognition software. It may contain grammatical, syntax or spelling errors. Electronically signed by: Kamron Phillips M.D. 01/22/2023 11:01 AM Brain MRI 01/22/23 11:01 MRI OF THE BRAIN WITHOUT IV CONTRAST CLINICAL HISTORY: Left lower extremity weakness. Dizziness. COMPARISON STUDY: CT of the brain dated 01/22/2023. TECHNIQUE: MRI of the brain was performed utilizing various T1 and T2-weighted sequences in the axial, sagittal, and coronal planes. IV contrast was not administered for this examination. FINDINGS: Brain parenchyma: There is a 1 cm focus of restricted diffusion suggested in the right hua radiata seen on axial image #13. There is no clear corresponding drop in signal on the ADC maps. A small acute to subacute lacunar infarct is not excluded. No additional foci of restricted diffusion are identified. There is no hemorrhage or mass effect. There are tiny chronic lacunar infarcts within both cerebellar hemispheres. Wisdom-white matter differentiation is preserved. No extra-axial fluid collection is seen. The cerebellar tonsils are normal in configuration. Ventricles, sulci, and cisterns: Normal in configuration. Pituitary and sella: Unremarkable. Intracranial vasculature: Normal flow voids are maintained at the skull base. Orbits: The bony orbits are grossly intact. Orbital contents are normal in appearance. Sinuses and mastoids: There is mild mucosal thickening within the right ethmoid sinuses. The remaining paranasal sinuses and anastomosis are clear. Calvarium: Unremarkable. Cervical cord: Partially visualized cervical spinal cord is normal in morphology and signal intensity. IMPRESSION: 1. Question a tiny acute to subacute lacunar infarct in the right hua radiata. See above. 2. No additional findings are suspicious for acute ischemia. 3. There is no hemorrhage or mass effect. ACT 112: Negative or not required by law. Electronically signed by: Kimo Alfonso M.D. 01/22/2023 12:46 PM ECG Additional Comments: NSR 62bpm. RBBB present. ?some T wave inversion in anterior leads troponin level negative at 4.5 on admission (repeating x 1) Supervising Physician Co-Signing Physician Notes I personally saw and examined the patient. I verified all campos points and agree with Erika Will PA-C with the following exceptions and/or additions: 52 year old female presents to the ER with left LLE and mild LUE weakness. Symptoms now completely resolved when seen. O/E A&Ox3, HS RRR, no murmurs, Chest CTAB, Abso SNT, CN 2-> 12 intact, no pronator drift, no upper or lower extremity weakness or change in sensation A/P Stroke vs. ocular migraine - ASA, clopidogrel, atorvastatin recommended by neurology. Monitor for a. fib overnight. Follow up with neurology as outpatient. Repeat MRI in 6 months with neurology. PG Care Time/CCT Total # of Minutes Spent Total Time Spent with Patient: Total time spent is greater than 50% in coordination of care (as documented) at patient's floor/unit and/or counseling patient: Coding Level of Care Code 43007 INT INP/OBS CARE 3/75MIN Diagnoses Stroke I63.9 CVA mechanism: unspecified Leukopenia D72.819 Hyperlipidemia E78.5 Hypothyroid E03.9 GERD (gastroesophageal reflux disease) K21.9 (1) Stroke CVA mechanism: unspecified Qualified Code(s): I63.9 - Cerebral infarction, unspecified
--- NOTE | 2023-01-22 14:02 | Electrocardiogram Report ---
Test Reason : Blood Pressure : / mmHG Vent. Rate : 062 BPM Atrial Rate : 062 BPM P-R Int : 152 ms QRS Dur : 146 ms QT Int : 434 ms P-R-T Axes : 028 089 -07 degrees QTc Int : 440 ms Normal sinus rhythm Right bundle branch block Abnormal ECG When compared with ECG of 29-FEB-2012 09:39, Vent. rate has decreased BY 33 BPM T wave inversion now evident in Anterior leads QT has shortened Confirmed by Westley Delacruz ([id number]) on 01/22/2023 2:02:19 PM Referred By: Confirmed By:Westley Delacruz
[2023-01-22] MEDS ORDERED: ONDANSETRON INJ 2 MG/ML 2 ML VIAL IV PRN (14:55)
[2023-01-22] MEDS ORDERED: SODIUM CHLORIDE 0.9% 1000ML 1,000 ML IV SCH (14:55)
[2023-01-22] MEDS ORDERED: ACETAMINOPHEN 325 MG TAB PO PRN ×2 (14:55→16:24)
--- NOTE | 2023-01-22 15:54 | Neurology Consultation ---
Date of Consultation January 22, 2023 Assessment & Plan (1) Stroke: Acute onset L leg weakness in a patient with a strong family history of MS. The acuity of onset suggests stroke but imaging does not support an acute lesion as there is no ADC correlate. With the location of this lesion and her famhx of MS, I am concerned about a clinically isolated syndrome. She does not meet radiologic criteria for MS. Would therefore proceed down two paths. Would complete her stroke workup with the addition of echo with bubble study and hypercoag panel (one 8wk miscarriage and one superficial DVT in the past). Would also plan to keep her on dual antiplatelet therapy for 21 days. As an outpatient, would repeat the MRI brain with and without contrast at 6 months to assess for any changes/new lesions. Discussed with patient the importance of maintaining vigilence for new significant symptoms in the interim. -- Aspirin 81mg daily and plavix 75mg daily for 21 days -- Lipitor 40mg daily -- Echo with bubble study -- Prothrombin gene, Factor V Leiden, Antiphopholipid ab panel -- Repeat MRI brain with and without in 6 months, sooner if new symptoms develop -- Neurology follow-up in 6 weeks Telehealth Consultation Telehealth Information Telehealth Information: I performed this visit using a real-time telehealth connection between my location and the patients location ([facility]). After conne cting through interactive tele-video, patient was identified by name and date of and/or wristband check.Patient (or authorized healthcare patient registration representative) was informed that this was a telemedicine visit and it was being conducted confidentially over secure lines. My office door was closed and no one else was present in the room with me.Patient (or authorized healthcare patient registration representative) provided consent to proceed with the visit, expressed an understanding of privacy and security of the telemedicine visit, and gave permission to have a hospital patient registration representative in the room in order to assist with the visit and to conduct portions of the visit, as needed. I informed the patient (or authorized healthcare patient registration representative) that I reviewed their record and presented the opportunity for them to ask any questions regarding the visit today. The patient agreed to participate. History of Present Illness Reason for Consultation: Stroke Requesting Physician: Dr. Martinez Attending Physician: Adi Martinez MD History of Present Illness Ricarda Hines is a 52 yo F presenting with left leg weakness she woke up with this morning. At the time symptoms were noted, her left arm seemed mildly affected as well, but that has since resolved. She currently only reports mild L leg weakness most noticeable when standing. She has a history of ocular migraine and a strong family history of MS with the disease present in siblings. At times over the past few years she had minor neurologic symptoms such as numbness of the fingers or change in her color perception she thought might be signs of MS. She denies any prior episodes of focal weakness, no hx of optic neuritis. Allergies Allergy/AdvReac Type Severity Reaction Status Date / Time No Known Allergies Allergy Verified 01/22/23 13:08 Home Medications Medication Instructions Recorded Confirmed Type multivitamin 1 tab PO QAM 11/15/18 01/22/23 History Cock-Up Wrist Splint #1 ea 07/26/21 07/27/22 Rx levothyroxine 50 mcg tablet 50 mcg PO DAILY #90 tabs 12/04/22 01/22/23 Rx Patient History Medical History Anxiety state, unspecified (04/16/13) Eczema Gastritis determined by endoscopy Hyperlipidemia Hypothyroid Leukopenia Vitamin D deficiency Surgical History H/O colonoscopy (05/2019) +TBA, repeat 5 yrs History of dilatation and curettage multiple History of esophagogastroduodenoscopy (EGD) (05/2019) gastritis History of laparoscopy x4 History of left breast biopsy benign History of umbilical hernia repair with laparoscopy History of wisdom tooth extraction Family History Grandfather (Maternal) Family history of reaction to anesthesia difficulty waking up Aunt Diabetes Grandmother (Paternal) Diabetes Leukemia Father Hypertension Dyslipidemia Mother , age 63 from [place] Breast cancer Myocardial infarction, Onset Age: 63 Grandmother (Maternal) Heart disease Leukemia Daughter Multiple sclerosis Social History Smoking Status: Never smoker Second Hand Exposure: No; Do You Dip or Chew Tobacco: No; Hx Alcohol Use: Yes Alcohol type: beer Alcohol Intake Frequency: Monthly or Less Hx Substance Use: No Preferred Language: Irish Communication Ability: Effective Visual Impairment: No Limitations Hearing Ability: Normal Predatory Animal Hunter Required: No Beliefs That Will Affect Care: None marital status: Current Living Situation: Family Current Living Situation Comment: Lives with and son current occupational status: employed 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 Oriented to person, place, and time. Fluent. C omprehension intact. Affect appropriate. Cranial Nerves: II: salgado grossly intact. III/IV/: Versions intact without nystagmus, no gaze preference. V: Facial sensation symmetric to light touch VII: Facial expression symmetric VIII: Hearing intact to voice IX/X: Palate elevates symmetrically XI: Shoulder shrug symmetric XII: Tongue midline Motor: Strength was symmetric and antigravity throughout. Pronator drift was absent. There were no abnormal movements. Coordination: heel to ferrell was intact. Reflexes: Unable to assess over telemedicine Results & Data Vital Signs (Past 12 Hours) Vital Signs Temp Pulse Pulse Pulse Resp BP BP 01/22/23 14:55 36.7 C 64 16 01/22/23 14:00 71 14 01/22/23 14:00 150/79 H 01/22/23 13:04 75 15 01/22/23 13:04 148/73 H 01/22/23 11:00 81 17 01/22/23 11:00 136/86 01/22/23 10:00 58 L 15 01/22/23 10:00 135/79 01/22/23 13:37 72 01/22/23 13:01 68 16 148/73 H 01/22/23 09:17 01/22/23 09:25 62 01/22/23 09:10 36.4 C L 66 16 151/72 H BP Pulse Ox O2 Del Method 01/22/23 14:55 166/92 H 99 Room Air 01/22/23 14:00 99 01/22/23 14:00 01/22/23 13:04 100 01/22/23 13:04 01/22/23 11:00 99 01/22/23 11:00 01/22/23 10:00 100 01/22/23 10:00 01/22/23 13:37 01/22/23 13:01 99 01/22/23 09:17 98 Room Air 01/22/23 09:25 01/22/23 09:10 98 Room Air Laboratory Results Abnormal lab results 01/22/23 01/22/23 Range/Units 09:01 09:01 WBC 3.88 L (4.8-10.8) K/ul MPV 9.3 L (9.4-12.4) fL Glucose 109 H (70-99(Fasting)) mg/dl Diagnostic Findings MRI brain - small periventricular T2 hyperintensity without true restricted diffusion. (1) Stroke CVA mechanism: unspecified Qualified Code(s): I63.9 - Cerebral infarction, unspecified
[2023-01-22] MEDS ORDERED: ATORVASTATIN 40 MG TAB PO SCH (21:00)
[2023-01-23] MEDS ORDERED: LEVOTHYROXINE SODIUM 50 MCG TABLET PO SCH (06:30)
[2023-01-23 07:13] LABS: Basophils # (auto) 0.03 K/uL (0-0.2); Basophils % (auto) 0.5 %; Hematocrit (blood only) 38.8 % (37.0-47.0); Hemoglobin 13.1 g/dl (12.0-16.0); Immature Granulocytes # (auto) 0.02 K/uL (0.01-0.20); Immature Granulocytes % (auto) 0.4 %; Lymphocytes # (auto) 1.49 K/uL (1.2-3.4); Lymphocytes % (auto) 27.1 %; Mean Corpuscular Hemoglobin 30.5 pg (25.0-34.0); Mean Corpuscular Hgb Conc 33.8 g/dL (32.0-36.0); Mean Corpuscular Volume 90.2 fL (80.0-100.0); Mean Platelet Volume 9.7 fL (9.4-12.4); Monocytes # (auto) 0.34 K/uL (0.11-0.59); Monocytes % (auto) 6.2 %; Neutrophils # (auto) 3.61 K/uL (1.40-6.50); Neutrophils % (auto) 65.8 %; Platelet Count 276 K/uL (130-400); RDW Coefficient of Variation 13.5 % (11.5-14.5); White Blood Count 5.49 K/ul (4.8-10.8)
[2023-01-23 07:23] LABS: Estimated Average Glucose 117 mg/dl; Hemoglobin A1C 5.7 % (4.5-5.6)
[2023-01-23 07:32] LABS: Albumin Globulin Ratio 1.3 (0.9-2); Albumin Level 3.9 gm/dl (3.4-5.0); BUN Creatinine Ratio 12.2 (10-20); Bilirubin,Total 0.6 mg/dl (0.2-1.0); Calcium 9.6 mg/dl (8.6-10.3); Chol HDL Ratio 3.6 (0-5); Creatinine Clr Calc Pharmacy 87.7 ml/min; Est GFR (Non-African American) 81.1 ml/min; Globulin 2.9 gm/dl (2.5-4.0); Magnesium 1.9 mg/dl (1.7-2.4); Potassium 3.6 mmol/L (3.5-5.1); Total Protein 6.8 gm/dl (6.0-8.3)
[2023-01-23] MEDS ORDERED: ASPIRIN 81 MG ECTAB PO SCH (09:00)
[2023-01-23] MEDS ORDERED: CLOPIDOGREL BISULFATE 75 MG TAB PO SCH (09:00)
--- NOTE | 2023-01-23 10:48 | XCELERA ---
[id number] \\[id number]\[id number]
--- NOTE | 2023-01-23 14:14 | Discharge Summary ---
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 NIHSS 1 for LLE drift against resistance in ER. Discussed w/ [facility] Neurologist Dr Vazquez by ER provider Dr Mayo, no TPN. Rec to load w/ ASA/Plavix and complete secondary work-up with ECHO/Lipid/A1c. Patient evaluated in room A11B, daughter and at bedside. Symptoms currently resolved at present reported, possibly slight LLE weakness w/ dorsiflexion on exam but otherwise negative. Currently without symptoms, sipping on water and having applesauce. She notes she did not have any chest pain/shortness of breath, but did have some dizziness reported. No palpitations/history of afib. On Synthroid, used to take before eating but has been taking w/ her AM coffee/breakfast. Prior too low level TSH and adjustments made but hasn't had recent check since last July. Discussed admission for completing stroke work-up, neuro consult w/ Dr Hyatt for AM (daughter follows for history of MS). No recent chills/fevers, illness, no chest pain, shortness of breath, abdominal pain. 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 No pronator drift or weakness of upper extremities bilaterally. Prior cholesterol level July 2022 250, LDL 164, HDL 68. Not on treatment -- she notes her levels were "good" per her report. No smoker, occasional etoh use. Does not take baby ASA at home. Just given ASA/Plavix prior to eval. Full code. Questions/concerns addressed at this time. ER Course: CT head, CTA head/neck, MRI brain noting questionable tiny acute to subacute lacunar infarct in right hua radiata. CBC with WBC 3.88, no shift. CMP unremarkable, glu 109. Mag 1.9. Trop 4.5. EKG w/ NSR but noting RBBB (no prior for comparison in system). Principal Diagnosis stroke like symptoms Discharge Exam The patient is awake, alert and oriented 3, well developed and well nourished, normocephalic and atraumatic, lying in bed and in no acute distress. HEENT--PERRL, EOMI, mucous membranes and oropharynx mildly dry Neck--supple. No JVD. No bruits. Thyroid normal, trachea midline, no adenopa thy. Heart--normal S1 and S2. No murmurs, rubs or gallops. Lungs--clear bilaterally, no respiratory distress, no accessory muscle use. Abdomen--normal bowel sounds and soft. Mild epigastric and left sided abdominal pain Extremities--no cyanosis or clubbing. No edema. Dermatologic--normal skin turgor, normal color, no abnormal lymph nodes, no rash. Neurologic--cranial nerves II through XII grossly intact. Rheumatologic--normal range of motion. Psychiatric--normal affect. Discharge Data Allergies Allergy/AdvReac Type Severity Reaction Status Date / Time No Known Allergies Allergy Verified 01/22/23 13:08 Consultations 01/22/23 13:13 ED Decision to Admit Stat 01/22/23 13:29 Consult Neurology Routine 01/22/23 17:50 Consult [facility] planning rn Routine Ordered Studies 01/22/23 09:01 CT angio head w con Stat CT angio neck with con Stat CT head/brain wo con Stat 01/22/23 11:01 MRI Brain [MR brain wo con] Stat Hospital Course (1) Stroke: Presented with headache/L arm heaviness/L leg weakness. COVID negative. BP on arrival 151/72 CT head negative, CTA head/neck without acute abnormality MRI brain obtained which showed ?tiny acute to subacute lacunar infarct in the right hua radiata No TPN per discussion w/ [facility] Neuro, Dr Giang, per Dr Mayo on admission Symptoms essentially resolved at present, needing to complete 2nd work-up Of note, daughter with MS, ?early MS Her symptoms resolved MRI did not suggest any acute pathology ECHO with bubble did not show any shunts Evaluated by neurology and they recommmend Plavix, ASA, Statin and outpatient repeat MRI in 6 weeks (2) Leukopenia: noted, differential unimpressive all prior levels low in system -- does appear had lymph node biopsy in the past. was sent for flow analysis but unimpressive will check peripheral smear, monitor CBC w/ diff on repeat (3) Hyperlipidemia: hx of such, not on treatment Lipid panel in AM, plan to start statin therapy (4) Hypothyroid: Prior TSH wnl in 08.14 Instructed on proper use, repeat TSH pending w/ labs Continue Synthroid 50mcg in the meantime (5) GERD (gastroesophageal reflux disease): prior hx reflux, not reporting any issues at present used to be on protonix/pepcid, not at present (prior EGD/c-scope in 2019 w/ polyp removed w/ colonoscopy, EGD showed gastritis, small hiatal hernia) monitor for any issues Total Time Total Time Spent Total Time Spent (In Minutes): 35 Discharge Plan Discharge Items Patient Disposition: Home - Self-Care Reason For Visit: ?CVA Discharge Diagnosis: stroke like symptom Activity: Resume your previous activity Non-emergency contact: Primary Care Provider and Neurologist Call non-emergency contact if: you have any medication questions Follow-up/Referrals: Angeline Ch, [Primary Care Provider] - Diet: Regular Addtl Attending Provider Instructions: please make arrangements to follow up with neurology in 6 weeks Pending Studies at Discharge: No Stand-Alone Forms: My [facility], Smoking Cessation Medications and DC Order Prescriptions: New atorvastatin 40 mg Tablet 40 mg PO HS 30 Days Qty: 30 0RF clopidogrel 75 mg Tablet 75 mg PO QAM 21 Days Qty: 21 0RF aspirin 81 mg Tablet,Delayed Release (Dr/Ec) 81 mg PO QAM 30 Days Qty: 30 0RF Continued levothyroxine 50 mcg tablet 50 mcg PO DAILY Qty: 90 1RF (DME) Cock-Up Wrist Splint Misc See Rx Instructions .Route Qty: 1 0RF Rx Instructions: As directed multivitamin Tablet 1 tab PO QAM Discharge Orders: Discharge Order (Routine); Ordered 01/23/23 Ordered By: Hattie Santos Admission Data Admit Date/Time: 01/22/23 13:29 Attending Provider: Hattie Santos Admit Provider: Adi Martinez Primary Care Provider: Angeline Ch Other Providers: Adi Martinez ; Mayito Hyatt Other Interventions: Discharge Summary Assessment (RN) Last Done: 01/23/23 11:18 Coding Level of Care Code 13496 INP/OBS DISCH >30 MIN Diagnoses Stroke I63.9 CVA mechanism: unspecified Leukopenia D72.819 Hyperlipidemia E78.5 Hypothyroid E03.9 GERD (gastroesophageal reflux disease) K21.9 Time Spent (min) 35
== END 2023-01-23 11:38 | disposition home or self-care (01) ==
LOC: ED 08:48 → SUATTDRO 13:29 → INTOOBSV 13:29 → 2N 13:29